=== PATIENT | female | born 1955 | race Caucasian/White ===

== ENCOUNTER → 2023-12-27 06:52 | Outpatient (REF) | payer OTHER, SELFPAY | LOC: HWWDC 06:52 | PROVIDERS: ATTENDING PHYSICIAN Internal Medicine | DX: Z12.31 Encounter for screening mammogram for malignant neoplasm of breast (principal) | CPT/HCPCS: 77063; 77067 ==

== ENCOUNTER → 2025-01-02 08:39 | Outpatient (REF) | payer OTHER, SELFPAY | LOC: HWWDC 08:39 | PROVIDERS: ATTENDING PHYSICIAN Obstetrics & Gynecology Gynecology; FAMILY PHYSICIAN Internal Medicine | DX: Z12.31 Encounter for screening mammogram for malignant neoplasm of breast (principal) | CPT/HCPCS: 77063; 77067 ==